=== PATIENT | male | born 1975 | race Caucasian/White ===

== ENCOUNTER 2018-11-04 11:53 | Emergency (ER) | payer OTHER, MEDICAID ==
[~2018-11-04] VITALS: Ht 182.9 cm; Wt 108.9 kg
[~2018-11-04 11:53] MED LIST: AEROBID7 GM IH; AMBIEN 5 MG TABL5 M1 PO; AMITRIPTYLINE H25 M2 PO; BENTYL10 MG PO; CARISOPRODOL 3350 MG PO; CELEXA20 MG PO; CIPROFLOXACIN500 M1 PO; CIPROFLOXACIN500 M3 PO; CLEOCIN HCL300 MG PO; DUONEB 2.5-0.5 M3 ML INH; FLAGYL500 MG PO; IBUPROFEN 800800 M1 PO; MOBIC15 MG PO; NAPROSYN500 MG PO; NEBULIZER MISCELL; NICOTINE TRANSD21 M1 TD; NOHOMEMEDICATIONS; NORCO 5-325 TA1 EACH PO; OXYCONTIN10 M1; PEPCID20 MG PO; PHENERGAN 25 MG25 M1 PO; PHENERGAN 25 MG25 MG PO; PREDNISONE 20 M20 MG PO; PROTONIX40 MG PO; RELAFEN500 MG PO; SEROQUEL XR 20200 MG PO; TRAMADOL 50 MG50 MG PO; ULTRAM 50MG TAB50 MG PO; ZPAK PO
[2018-11-04] MEDS ORDERED: TRAZODONE HCL100 MG PO (11:58)
[2018-11-04 12:43] LABS: INFLUENZA A ANTIGEN None Detected (None Detect); INFLUENZA B ANTIGEN None Detected (None Detect)
[2018-11-04 12:52] LABS: ABSOLUTE BASOPHILS 0.1 thou/uL (0.0-0.2); ABSOLUTE EOSINOPHILS 0.3 thou/uL (0.0-0.7); ABSOLUTE LYMPHOCYTES 1.9 thou/uL (0.8-5.3); ABSOLUTE MONOCYTES 0.9 thou/uL (0.0-1.2); ABSOLUTE NEUTROPHILS 6.1 thou/uL (1.6-8.1); BASOPHILS 0.9 %; EOSINOPHILS 3.2 %; HEMATOCRIT 50.4 % (42.0-52.0); HEMOGLOBIN 16.7 gm/dL (14.0-18.0); LYMPHOCYTES 20.7 %; MCH 32.3 pg (26.0-34.0); MCHC 33.2 g/dL (28.0-37.0); MCV 97.3 fL (80.0-100.0); MONOCYTES 9.8 %; MPV 8.4 fl. (7.2-11.1); NUCLEATED RBCS 0 /100WBC; PLATELET COUNT* 250 thou/uL (150-400); POLYS 65.4 %; RBC 5.19 mil/uL (4.50-6.00); RDW-CV 15.5 % (10.5-14.5); WBC 9.3 thou/uL (4.0-11.0)
[2018-11-04 12:58] LABS: CALCIUM 8.8 mg/dL (8.5-10.1); CREATININE 1.4 mg/dL (0.6-1.3); POTASSIUM 3.9 mmol/L (3.5-5.1)
[2018-11-04 13:07] LABS: ALBUMIN 3.6 g/dL (3.4-5.0); TOTAL BILIRUBIN 0.2 mg/dL (<0.1-1.0); TOTAL PROTEIN 7.5 g/dL (6.4-8.2)
[2018-11-04] MEDS ORDERED: KEFLEX500 M1 PO (14:17)
[2018-11-04] MEDS ORDERED: ZOFRAN ODT4 MG PO (14:18)
[2018-11-04] MEDS ORDERED: LOPERAMIDE 2 MG2 M1 PO (14:18)
[2018-11-04 14:27] VITALS: BP 160/82
--- NOTE | 2018-11-04 18:45 | EKG ---
[place] [address] ELECTROCARDIOGRAM REPORT Name: DAVID LITTLE III Room: [facility]#: [id number] Admission: 11/04/18 Attend Phys: Discharge: 11/04/18 Date of : 77 Report #: [id number] THIS REPORT FOR: //name// [facility] ED Test Date: 2018-11-04 Test Time: 13:29:43 Pat Name: DAVID LITTLE Department: Room: Gender: M Herb Digger: ANSHUL : 1975 Requested By: Vanita Martinez Order Number: [id number] MD: Silvestre Washington Measurements Intervals [employer] Rate: 84 P: 69 NE: 242 QRS: 105 QRSD: 100 T: 5 QT: 360 QTc: 426 Interpretive Statements Sinus rhythm Prolonged NE interval Left posterior fascicular block Compared to ECG 04/22/2017 22:11:49 Sinus tachycardia no longer present Electronically Signed On 11-04-2018 18:45:27 SINGE MACHINE OPERATOR by Silvestre Washington [email or web address] <ELECTRONICALLY SIGNED> By: Silvestre Washington MD, [facility] 11/04/18 1845 1329 1329 Silvestre Washington MD, [facility] /EPI
== END 2018-11-04 14:27 | disposition home or self-care (01) ==
LOC: M.ERS 11:53
PROVIDERS: Physician Assistant
DX: R10.11 Right upper quadrant pain (principal); R10.84 Generalized abdominal pain; J02.9 Acute pharyngitis, unspecified; R11.2 Nausea with vomiting, unspecified; R19.7 Diarrhea, unspecified; M19.90 Unspecified osteoarthritis, unspecified site; F32.9 Major depressive disorder, single episode, unspecified; F41.9 Anxiety disorder, unspecified; F17.200 Nicotine dependence, unspecified, uncomplicated; Z88.0 Allergy status to penicillin

== ENCOUNTER 2019-12-19 19:27 | Emergency (ER) | payer OTHER ==
[~2019-12-19] VITALS: Ht 185.4 cm; Wt 88.5 kg
[~2019-12-19 19:27] MED LIST changes: +KEFLEX500 M1 PO; +LOPERAMIDE 2 MG2 M1 PO; +TRAZODONE HCL100 MG PO; +ZOFRAN ODT4 MG PO
[2019-12-19 20:50] LABS: ABSOLUTE BASOPHILS 0.1 thou/uL (0.0-0.2); ABSOLUTE EOSINOPHILS 0.2 thou/uL (0.0-0.7); ABSOLUTE LYMPHOCYTES 2.4 thou/uL (0.8-5.3); ABSOLUTE MONOCYTES 0.7 thou/uL (0.0-1.2); ABSOLUTE NEUTROPHILS 5.7 thou/uL (1.6-8.1); EOSINOPHILS 2.5 %; HEMATOCRIT 36.6 % (42.0-52.0); HEMOGLOBIN 12.4 gm/dL (14.0-18.0); LYMPHOCYTES 26.5 %; MCH 28.8 pg (26.0-34.0); MCHC 33.9 g/dL (28.0-37.0); MPV 7.7 fl. (7.2-11.1); NUCLEATED RBCS 0 /100WBC; PLATELET COUNT* 333 thou/uL (150-400); RBC 4.31 mil/uL (4.50-6.00); RDW-CV 13.2 % (10.5-14.5); WBC 9.1 thou/uL (4.0-11.0)
[2019-12-19 20:57] LABS: CREATININE 1.7 mg/dL (0.6-1.3); POTASSIUM 4.9 mmol/L (3.5-5.1)
[2019-12-19 21:02] LABS: ALBUMIN 3.4 g/dL (3.4-5.0); TOTAL BILIRUBIN 0.2 mg/dL (<0.1-1.0); TOTAL PROTEIN 7.9 g/dL (6.4-8.2)
[2019-12-19] MEDS ORDERED: NORCO 5-325 TA1 EAC1 PO (22:27)
[2019-12-19] MEDS ORDERED: DOXYCYCLINE 10100 MG PO (22:27)
[2019-12-19 22:45] VITALS: BP 85/45
[2019-12-21 09:07] LABS: HEPATITIS B SURFACE AG Negative (Negative)
== END 2019-12-19 22:49 | disposition left against medical advice (07) ==
LOC: M.ERS 19:27
PROVIDERS: Emergency Medicine
DX: S22.41XA Multiple fractures of ribs, right side, initial encounter for closed fracture (principal); J18.9 Pneumonia, unspecified organism; M19.90 Unspecified osteoarthritis, unspecified site; F32.9 Major depressive disorder, single episode, unspecified; F41.9 Anxiety disorder, unspecified; Z88.0 Allergy status to penicillin; X58.XXXA Exposure to other specified factors, initial encounter; Y93.89 Activity, other specified; Y92.89 Other specified places as the place of occurrence of the external cause; Y99.8 Other external cause status

== ENCOUNTER 2019-12-21 15:28 | Emergency (ER) | payer OTHER ==
[~2019-12-21] VITALS: Ht 185.4 cm; Wt 88.5 kg
[~2019-12-21 15:28] MED LIST changes: +DOXYCYCLINE 10100 MG PO; +NORCO 5-325 TA1 EAC1 PO
[2019-12-21] MEDS ORDERED: VENTOLIN HFA 1818 GM INH (16:58)
[2019-12-21] MEDS ORDERED: PREDNISONE 20 M20 M1 PO (16:58)
[2019-12-21] MEDS ORDERED: NORCO 5-325 TA1 EAC1 PO (16:58)
[2019-12-21 17:06] VITALS: BP 112/65
== END 2019-12-21 17:07 | disposition home or self-care (01) ==
LOC: M.ERS 15:28
DX: J40 Bronchitis, not specified as acute or chronic (principal); F41.9 Anxiety disorder, unspecified; F20.9 Schizophrenia, unspecified; F32.9 Major depressive disorder, single episode, unspecified; M19.90 Unspecified osteoarthritis, unspecified site; Z98.890 Other specified postprocedural states; Z88.0 Allergy status to penicillin

== ENCOUNTER 2020-01-17 18:25 | Inpatient (IN) | payer OTHER, MEDICAID ==
[~2020-01-17] VITALS: Ht 185.4 cm; Wt 71.7 kg
[~2020-01-17 18:25] MED LIST changes: +PREDNISONE 20 M20 M1 PO; +VENTOLIN HFA 1818 GM INH
[2020-01-17 18:47] VITALS: BP 99/58
[2020-01-17 19:24] LABS: INFLUENZA A ANTIGEN Negative (Negative); INFLUENZA B ANTIGEN Negative (Negative)
[2020-01-17 21:12] LABS: HEMATOCRIT 32.9 % (42.0-52.0); MCH 28.7 pg (26.0-34.0); MCHC 33.5 g/dL (28.0-37.0); MCV 85.8 fL (80.0-100.0); MPV 8.2 fl. (7.2-11.1); NUCLEATED RBCS 0 /100WBC; PLATELET COUNT* 267 thou/uL (150-400); RBC 3.83 mil/uL (4.50-6.00); WBC 11.3 thou/uL (4.0-11.0)
[2020-01-17 21:19] LABS: CREATININE 1.4 mg/dL (0.6-1.3); POTASSIUM 3.7 mmol/L (3.5-5.1)
[2020-01-17 21:30] LABS: ALBUMIN 2.5 g/dL (3.4-5.0); TOTAL BILIRUBIN 0.5 mg/dL (<0.1-1.0); TOTAL PROTEIN 7.4 g/dL (6.4-8.2)
[2020-01-17 22:29] LABS: ABSOLUTE EOSINOPHILS 0.1 thou/uL (0.0-0.7); ABSOLUTE LYMPHOCYTES 1.5 thou/uL (0.8-5.3); ABSOLUTE MONOCYTES 1.2 thou/uL (0.0-1.2); ABSOLUTE NEUTROPHILS 8.5 thou/uL (1.6-8.1); PLATELET ESTIMATE ADEQUATE
[2020-01-17 23:30] VITALS: BP 96/26
[2020-01-18 00:30] VITALS: BP 103/55
[2020-01-18 04:00] VITALS: BP 101/52
[2020-01-18 08:03] VITALS: BP 112/61
[2020-01-18 09:45] LABS: URINE BILIRUBIN NEGATIVE (Negative); URINE BLOOD TRACE (Negative); URINE CLARITY CLEAR; URINE COLOR YELLOW; URINE GLUCOSE-RANDOM 2+ (Negative); URINE KETONES NEGATIVE (Negative); URINE LEUKOCYTES-REFLEX NEGATIVE (Negative); URINE NITRITE-REFLEX NEGATIVE (Negative); URINE PROTEIN 1+ (Negative); URINE UROBILINOGEN 0.2 E.U./dl (0.2-1.0)
[2020-01-18 09:52] LABS: AMP/METHAMP POSITIVE (Negative); BARBITURATES Negative (Negative); BENZODIAZEPINES Negative (Negative); COCAINE Negative (Negative); METHADONE Negative (Negative); OPIATES POSITIVE (Negative); PCP Negative (Negative); THC Negative (Negative)
[2020-01-18] MEDS ORDERED: HYDROCODON-ACE1 EAC5 PO (10:24)
[2020-01-18] MEDS ORDERED: ADVAIR 100-501 EACH INH (10:25)
[2020-01-18] MEDS ORDERED: XANAX2 MG PO (10:26)
[2020-01-18 10:37] LABS: CALCIUM 8.7 mg/dL (8.5-10.1); CREATININE 1.4 mg/dL (0.6-1.3); MAGNESIUM 2.1 mg/dL (1.8-2.4); POTASSIUM 4.3 mmol/L (3.5-5.1)
[2020-01-18 16:22] VITALS: BP 111/59
--- NOTE | 2020-01-18 16:38 | EKG ---
[place] [address] ELECTROCARDIOGRAM REPORT Name: DAVID LITTLE III [address] [id number] Admission: 01/17/20 Attend Phys: Nate Lucas Discharge: Date of : 77 Date of Service: 01/17/202125 Report #: [id number] THIS REPORT FOR: //name// [facility] ED Test Date: 2020-01-17 Test Time: 21:26:37 Pat Name: DAVID LITTLE Department: Room: [facility] Gender: M Participant Administrator: [place] : 1975 Requested By: Socorro Oneil Order Number: [id number] MD: Silvestre Washington Measurements Intervals [place] Rate: 88 P: 46 CA: 130 QRS: 29 QRSD: 103 T: 67 QT: 341 QTc: 413 Interpretive Statements Sinus rhythm RSR' in V1 or V2, right VCD or RVH Baseline wander in lead(s) V3 Compared to ECG 11/04/2018 13:29:43 RSR' in V1 or V2 now present First degree AV block no longer present Left posterior fascicular block no longer present Electronically Signed On 01-18-2020 16:37:42 STAVE MACHINE TENDER by Silvestre Washington [email or web address] <ELECTRONICALLY SIGNED> By: Silvestre Washington MD, [facility] 01/18/20 1637 25 25 Silvestre Washington MD, [facility] /EPI
[2020-01-18 19:40] VITALS: BP 118/48
[2020-01-19 00:32] VITALS: BP 100/49
[2020-01-19 05:01] LABS: ABSOLUTE LYMPHOCYTES 0.9 thou/uL (0.8-5.3); ABSOLUTE NEUTROPHILS 11.2 thou/uL (1.6-8.1); BASOPHILS 0.1 %; HEMATOCRIT 27.6 % (42.0-52.0); LYMPHOCYTES 6.7 %; MCH 28.5 pg (26.0-34.0); MCHC 32.8 g/dL (28.0-37.0); MCV 86.8 fL (80.0-100.0); MONOCYTES 7.4 %; NUCLEATED RBCS 0 /100WBC; PLATELET COUNT* 266 thou/uL (150-400); POLYS 85.8 %; RBC 3.17 mil/uL (4.50-6.00); RDW-CV 14.6 % (10.5-14.5); WBC 13.1 thou/uL (4.0-11.0)
[2020-01-19 05:51] LABS: CALCIUM 8.7 mg/dL (8.5-10.1); CREATININE 1.1 mg/dL (0.6-1.3); POTASSIUM 4.3 mmol/L (3.5-5.1)
[2020-01-19 07:30] VITALS: BP 84/62
[2020-01-19 16:00] VITALS: BP 90/43
[2020-01-19 21:20] VITALS: BP 108/60
[2020-01-20 00:19] VITALS: BP 104/49
[2020-01-20 04:00] VITALS: BP 99/49
[2020-01-20 05:25] LABS: ABSOLUTE LYMPHOCYTES 1.2 thou/uL (0.8-5.3); ABSOLUTE MONOCYTES 0.9 thou/uL (0.0-1.2); ABSOLUTE NEUTROPHILS 13.1 thou/uL (1.6-8.1); BASOPHILS 0.3 %; HEMATOCRIT 29.9 % (42.0-52.0); HEMOGLOBIN 9.8 gm/dL (14.0-18.0); LYMPHOCYTES 7.6 %; MCH 28.5 pg (26.0-34.0); MCHC 32.8 g/dL (28.0-37.0); MONOCYTES 5.9 %; NUCLEATED RBCS 0 /100WBC; PLATELET COUNT* 325 thou/uL (150-400); POLYS 86.2 %; RBC 3.44 mil/uL (4.50-6.00); RDW-CV 14.9 % (10.5-14.5); WBC 15.3 thou/uL (4.0-11.0)
[2020-01-20 05:40] LABS: ALBUMIN 2.1 g/dL (3.4-5.0); CALCIUM 8.6 mg/dL (8.5-10.1); CREATININE 1.2 mg/dL (0.6-1.3); POTASSIUM 4.4 mmol/L (3.5-5.1); TOTAL BILIRUBIN 0.1 mg/dL (<0.1-1.0); TOTAL PROTEIN 6.2 g/dL (6.4-8.2)
[2020-01-20 07:09] VITALS: BP 99/49
[2020-01-20 08:01] VITALS: BP 92/68
== END 2020-01-20 09:00 | disposition left against medical advice (07) | DRG 871 ==
LOC: M.ERS 18:25 → M.2W 21:21 → M.TBA-ER 21:21 → M.2W 23:16
PROVIDERS: Emergency Medicine; Internal Medicine; Nurse Practitioner Family; Physician Assistant; ADMIT Internal Medicine
DX: A41.9 Sepsis, unspecified organism (principal); J18.9 Pneumonia, unspecified organism; F11.20 Opioid dependence, uncomplicated; F20.0 Paranoid schizophrenia; G93.40 Encephalopathy, unspecified; M19.90 Unspecified osteoarthritis, unspecified site; F17.210 Nicotine dependence, cigarettes, uncomplicated; F41.1 Generalized anxiety disorder; F32.9 Major depressive disorder, single episode, unspecified; J40 Bronchitis, not specified as acute or chronic; G89.29 Other chronic pain; Z53.29 Procedure and treatment not carried out because of patient's decision for other reasons; Z79.899 Other long term (current) drug therapy; Z79.51 Long term (current) use of inhaled steroids; Z88.0 Allergy status to penicillin

== ENCOUNTER 2021-11-17 13:32 | Emergency (ER) | payer MEDICARE ==
[~2021-11-17] VITALS: Ht 185.4 cm; Wt 61.2 kg
[~2021-11-17 13:32] MED LIST changes: +ADVAIR 100-501 EACH INH; +HYDROCODON-ACE1 EAC5 PO; +XANAX2 MG PO
[2021-11-17 14:14] LABS: HEMATOCRIT 31.2 % (42.0-52.0); HEMOGLOBIN 10.3 gm/dL (14.0-18.0); MCH 28.3 pg (26.0-34.0); MCHC 32.8 g/dL (28.0-37.0); MCV 86.1 fL (80.0-100.0); MPV 8.1 fl. (7.2-11.1); RBC 3.63 mil/uL (4.50-6.00); RDW-CV 13.3 % (10.5-14.5); WBC 5.3 thou/uL (4.0-11.0)
[2021-11-17 14:23] LABS: CALCIUM 7.9 mg/dL (8.5-10.1); CREATININE 1.3 mg/dL (0.6-1.3); POTASSIUM 4.3 mmol/L (3.5-5.1)
--- NOTE | 2021-11-17 14:43 | EKG ---
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: : 1975 Requested By: Socorro Oneil Order Number: [id number] MD: Silvestre Washington Measurements Intervals [place] Rate: 104 P: 69 SC: 174 QRS: 226 QRSD: 97 T: 77 QT: 326 QTc: 429 Interpretive Statements Sinus tachycardia Right atrial enlargement early transition right axis Artifact noted Compared to ECG 01/17/2020 21:26:37 Atrial abnormality now present Sinus rhythm no longer present Electronically Signed On 11-17-2021 14:42:58 ACCOUNT MANAGER SALES REPRESENTATIVE by Silvestre Washington [email or web address] <ELECTRONICALLY SIGNED> By: Silvestre Washington MD, FAC 11/17/21 1442 1357 1357 Silvestre Washington MD, [facility] /EPI
[2021-11-17 15:56] VITALS: BP 105/54
[2021-11-17] MEDS ORDERED: DEXAMETHASONE4 MG PO (18:44)
[2021-11-17] MEDS ORDERED: ZPAK PO (18:44)
[2021-11-17] MEDS ORDERED: PROAIR HFA8.5 GM INH (18:44)
--- NOTE | 2021-11-18 11:27 | EKG ---
[place] [address] ELECTROCARDIOGRAM REPORT Name: DAVID LITTLE III Room: 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: : 1975 Requested By: Socorro Oneil Order Number: [id number] MD: Silvestre Washington Measurements Intervals [place] Rate: 100 P: 42 LA: 166 QRS: 220 QRSD: 97 T: 75 QT: 332 QTc: 429 Interpretive Statements Sinus tachycardia Right axis deviation RsR' in V1 Compared to ECG 11/17/2021 13:57:15 no change Electronically Signed On 11-18-2021 11:26:39 PUMPING SUPERVISOR by Silvestre Washington [email or web address] <ELECTRONICALLY SIGNED> By: Silvestre Washington MD, [facility] 11/18/21 1126 1406 140 Silvestre Washington MD, [facility] /EPI
== END 2021-11-17 15:57 | disposition left against medical advice (07) ==
LOC: M.ERS 13:32
PROVIDERS: Physician Assistant
DX: U07.1 COVID-19 (principal); R09.02 Hypoxemia; J18.9 Pneumonia, unspecified organism; M19.90 Unspecified osteoarthritis, unspecified site; F32.9 Major depressive disorder, single episode, unspecified; F41.9 Anxiety disorder, unspecified; F17.210 Nicotine dependence, cigarettes, uncomplicated; Z79.899 Other long term (current) drug therapy; Z88.0 Allergy status to penicillin

== ENCOUNTER 2021-11-26 17:59 | Emergency (ER) | payer OTHER ==
[~2021-11-26 17:59] MED LIST changes: +DEXAMETHASONE4 MG PO; +PROAIR HFA8.5 GM INH
[2021-11-26 19:36] VITALS: BP 0/0
== END 2021-11-26 19:37 | disposition left against medical advice (07) ==
LOC: M.ERS 17:59
DX: R06.02 Shortness of breath (principal); R50.9 Fever, unspecified; Z53.21 Procedure and treatment not carried out due to patient leaving prior to being seen by health care provider

== ENCOUNTER 2021-11-28 17:36 | Emergency (ER) | payer OTHER ==
[~2021-11-28] VITALS: Ht 185.4 cm; Wt 59.0 kg
[2021-11-28 17:42] VITALS: BP 96/57
== END 2021-11-28 18:30 | disposition left against medical advice (07) ==
LOC: M.ERS 17:36
DX: U07.1 COVID-19 (principal); R06.02 Shortness of breath; R10.9 Unspecified abdominal pain; F32.9 Major depressive disorder, single episode, unspecified; F20.9 Schizophrenia, unspecified; F41.9 Anxiety disorder, unspecified; Z98.890 Other specified postprocedural states; Z88.0 Allergy status to penicillin; Z53.21 Procedure and treatment not carried out due to patient leaving prior to being seen by health care provider